=== PATIENT | male | born 2000 | race African-American/Black ===

== ENCOUNTER 2022-07-20 17:41 | Emergency (ER) | payer OTHER ==
[~2022-07-20] VITALS: Ht 185.4 cm; Wt 73.0 kg
[2022-07-20 17:43] VITALS: BP 134/84
== END 2022-07-21 01:49 | disposition left against medical advice (07) ==
LOC: ER 17:41
DX: Z53.21 Procedure and treatment not carried out due to patient leaving prior to being seen by health care provider (principal)

== ENCOUNTER 2025-09-21 00:26 | Emergency (ER) | payer OTHER ==
[~2025-09-21] VITALS: Ht 182.9 cm; Wt 70.3 kg
[2025-09-21 00:27] VITALS: TEMP 36.8; O2SAT 99
[2025-09-21] MEDS ORDERED: IBUP-1455 MT (03:25)
[2025-09-21] MEDS ORDERED: CHLO473M13 MT (03:25)
[2025-09-21 03:47] VITALS: BP 126/85; PULSE 63; RESP 16; O2SAT 99
== END 2025-09-21 03:50 | disposition home or self-care (01) ==
LOC: ER 00:26
DX: S00.512A Abrasion of oral cavity, initial encounter (principal); J45.909 Unspecified asthma, uncomplicated; X58.XXXA Exposure to other specified factors, initial encounter; Y93.89 Activity, other specified; Y92.89 Other specified places as the place of occurrence of the external cause; Y99.8 Other external cause status
CPT/HCPCS: 99283